=== PATIENT | male | born 1960 | race Caucasian/White ===

== ENCOUNTER → 2017-12-07 | Outpatient (REF) ==
[~2017-12-07] MED LIST: ASPI-715 PO; CEP500 PO; EZET1TAB86 PO; LEVO75TA73 PO; [UNRECOGNIZED DRUG - OTHER] PO
== END ==
LOC: AUD 09:15
PROVIDERS: ATTEND Family Medicine
DX: Z01.10 Encounter for examination of ears and hearing without abnormal findings (principal)
CPT/HCPCS: 92552

== ENCOUNTER → 2018-12-27 | Outpatient (REF) | LOC: AUD 08:30 | PROVIDERS: ATTEND Family Medicine | DX: Z01.12 Encounter for hearing conservation and treatment (principal) | CPT/HCPCS: 92552 ==